=== PATIENT | female | born 1970 | race Two or more races ===

== ENCOUNTER 2022-05-26 11:33 | Emergency (ER) | payer MEDICAID ==
[~2022-05-26] VITALS: Ht 160 cm; Wt 73.0 kg
[2022-05-26 11:48] VITALS: BP 145/89
== END 2022-05-26 18:58 | disposition left against medical advice (07) ==
LOC: ER 11:33
DX: Z53.21 Procedure and treatment not carried out due to patient leaving prior to being seen by health care provider (principal)